=== PATIENT | female | born 1995 | race Caucasian/White ===

== ENCOUNTER 2020-10-30 13:10 | Outpatient (CLI) | payer OTHER ==
[~2020-10-30] VITALS: Ht 160 cm; Wt 59.0 kg
== END 2020-10-30 16:30 | disposition home or self-care (01) ==
LOC: GENOP 13:10
PROVIDERS: Obstetrics & Gynecology
DX: O42.913 Preterm premature rupture of membranes, unspecified as to length of time between rupture and onset of labor, third trimester (principal); Z3A.35 35 weeks gestation of pregnancy
CPT/HCPCS: 80307; 81001; 83518; 96360; 96361; 96365; 96367; J0696; J7030

== ENCOUNTER 2020-11-02 15:43 | Outpatient (CLI) | payer OTHER | END 2020-11-03 02:35 | disposition home or self-care (01) | LOC: GENOP 15:43 | PROVIDERS: Obstetrics & Gynecology | DX: O42.92 Full-term premature rupture of membranes, unspecified as to length of time between rupture and onset of labor (principal); Z3A.38 38 weeks gestation of pregnancy | CPT/HCPCS: 80307; 81001; 83518; 84156; G0463 ==

== ENCOUNTER 2020-11-08 03:08 | Emergency (ER) | payer OTHER ==
[2020-11-08 14:31] LABS: HEMOGLOBIN 11.5 gm/dl (12.3-15.3); RED BLOOD COUNT 3.84 M/UL (4.00-5.10); WHITE BLOOD COUNT 6.4 K/UL (4.5-11.0)
[2020-11-08 14:58] LABS: BUN/CREATININE RATIO 15 (0-10)
== END 2020-11-08 20:20 | disposition short-term general hospital (02) ==
LOC: ER1 03:08
PROVIDERS: Emergency Medicine
DX: O99.891 Other specified diseases and conditions complicating pregnancy (principal); R45.851 Suicidal ideations; O23.43 Unspecified infection of urinary tract in pregnancy, third trimester; O99.333 Smoking (tobacco) complicating pregnancy, third trimester; F17.200 Nicotine dependence, unspecified, uncomplicated; Z88.5 Allergy status to narcotic agent; Z88.8 Allergy status to other drugs, medicaments and biological substances; Z3A.36 36 weeks gestation of pregnancy
CPT/HCPCS: 80053; 80307; 81001; 83735; 85025; 87086; 87635; 99285; G0480

== ENCOUNTER 2020-12-08 00:53 | Inpatient (IN) | payer OTHER ==
[~2020-12-08] VITALS: Ht 160 cm; Wt 59.0 kg
[2020-12-08 02:53] LABS: HEMOGLOBIN 12.5 gm/dl (12.3-15.3); RED BLOOD COUNT 4.17 M/UL (4.00-5.10); WHITE BLOOD COUNT 9.4 K/UL (4.5-11.0)
[2020-12-08] MEDS ORDERED: IBU600 MG PO (06:50)
[2020-12-08] MEDS ORDERED: COLACE 100MG C100 MG PO (06:50)
[2020-12-09 06:25] LABS: HEMOGLOBIN 10.6 gm/dl (12.3-15.3)
== END 2020-12-10 16:35 | disposition home or self-care (01) | DRG 807 ==
LOC: GENOP 00:53 → OB 04:31
PROVIDERS: Obstetrics & Gynecology; ADMIT Obstetrics & Gynecology
PROC: 10E0XZZ Delivery of Products of Conception, External Approach (ICD-10-PCS; principal; 2020-12-08)
PROC: 4A1HX4Z Monitoring of Products of Conception, Cardiac Electrical Activity, External Approach (ICD-10-PCS; 2020-12-08)
DX: O99.334 Smoking (tobacco) complicating childbirth (principal); Z37.0 Single live birth; F17.210 Nicotine dependence, cigarettes, uncomplicated; Z3A.40 40 weeks gestation of pregnancy; Z20.822 Contact with and (suspected) exposure to COVID-19; F32.9 Major depressive disorder, single episode, unspecified
CPT/HCPCS: 36415; 80307; 81001; 82800; 85014; 85018; 85025; 87635; J2300; J2590

== ENCOUNTER 2021-11-17 16:10 | Outpatient (CLI) | payer OTHER ==
[~2021-11-17 16:10] MED LIST: COLACE 100MG C100 MG PO; IBU600 MG PO
== END 2021-11-17 17:19 | disposition home or self-care (01) ==
LOC: GENOP 16:10
DX: O26.853 Spotting complicating pregnancy, third trimester (principal); O99.891 Other specified diseases and conditions complicating pregnancy; R10.2 Pelvic and perineal pain; O99.343 Other mental disorders complicating pregnancy, third trimester; F31.9 Bipolar disorder, unspecified; F41.9 Anxiety disorder, unspecified; O99.333 Smoking (tobacco) complicating pregnancy, third trimester; F17.210 Nicotine dependence, cigarettes, uncomplicated; Z88.5 Allergy status to narcotic agent; Z88.8 Allergy status to other drugs, medicaments and biological substances; Z3A.34 34 weeks gestation of pregnancy
CPT/HCPCS: 59025; 81001

== ENCOUNTER 2021-12-14 20:47 | Emergency (ER) | payer SELFPAY ==
[2021-12-14 23:10] LABS: HEMOGLOBIN 10.6 gm/dl (12.3-15.3); RED BLOOD COUNT 3.88 M/UL (4.00-5.10); WHITE BLOOD COUNT 6.5 K/UL (4.5-11.0)
[2021-12-14 23:13] LABS: BUN/CREATININE RATIO 14 (0-10)
== END 2021-12-15 00:14 | disposition home or self-care (01) ==
LOC: ER1 20:47
PROVIDERS: Physician Assistant
DX: O23.90 Unspecified genitourinary tract infection in pregnancy, unspecified trimester (principal); O99.519 Diseases of the respiratory system complicating pregnancy, unspecified trimester; J06.9 Acute upper respiratory infection, unspecified; O99.330 Smoking (tobacco) complicating pregnancy, unspecified trimester; F17.210 Nicotine dependence, cigarettes, uncomplicated; Z88.5 Allergy status to narcotic agent; Z20.822 Contact with and (suspected) exposure to COVID-19
CPT/HCPCS: 80048; 81001; 85025; 87086; 99283; U0002